=== PATIENT | male | born 1990 | race Asian ===

== ENCOUNTER 2016-11-29 06:41 | Emergency (ER) | payer OTHER | END 2016-11-29 06:50 | disposition home or self-care (01) | LOC: SED 06:41 | DX: F11.129 Opioid abuse with intoxication, unspecified (principal) | CPT/HCPCS: 99282 ==

== ENCOUNTER 2016-11-29 23:50 | Emergency (ER) | payer OTHER | END 2016-11-30 03:47 | disposition home or self-care (01) | LOC: CED 23:50 | DX: T40.1X1A Poisoning by heroin, accidental (unintentional), initial encounter (principal); F17.210 Nicotine dependence, cigarettes, uncomplicated | CPT/HCPCS: 96374; 99283 ==

== ENCOUNTER 2016-12-01 22:10 | Emergency (ER) | payer OTHER | END 2016-12-02 00:24 | disposition home or self-care (01) | LOC: CED 22:10 | DX: F11.10 Opioid abuse, uncomplicated (principal) | CPT/HCPCS: 36415; 96374; 99283; J2310 ==

== ENCOUNTER 2017-01-19 07:43 | Emergency (ER) | payer OTHER | END 2017-01-19 08:55 | disposition home or self-care (01) | LOC: CED 07:43 | DX: T40.1X1A Poisoning by heroin, accidental (unintentional), initial encounter (principal); F17.210 Nicotine dependence, cigarettes, uncomplicated | CPT/HCPCS: 99282 ==

== ENCOUNTER 2017-01-22 20:27 | Emergency (ER) | payer OTHER | END 2017-01-22 20:45 | disposition home or self-care (01) | LOC: CED 20:27 | DX: T40.1X1A Poisoning by heroin, accidental (unintentional), initial encounter (principal); F17.210 Nicotine dependence, cigarettes, uncomplicated | CPT/HCPCS: 96374; 99283; J2310 ==

== ENCOUNTER → 2017-01-26 14:09 | Emergency (ER) | payer OTHER | END | disposition home or self-care (01) | LOC: CED 14:09 | DX: F11.10 Opioid abuse, uncomplicated (principal) | CPT/HCPCS: 99282; J2310 ==